=== PATIENT | male | born 1985 | race Caucasian/White ===

== ENCOUNTER → 2017-01-28 | Outpatient (CLI) | payer BC ==
--- NOTE | 2017-01-28 16:46 | DIAGNOSTIC IMAGING REPORT ---
R HAND MIN 3 VIEWS CLINICAL HISTORY: RIGHT HAND PAIN pain COMPARISON: 01/07/2017 DISCUSSION: Oblique/spiral fracture fifth metatarsal unchanged from the prior study. Possible early callus formation. Alignment is similar. No evidence of dislocation. All remaining osseous structures are unremarkable. Moderate soft tissue edema IMPRESSION: Minimal interval healing of a spiral fracture fifth metacarpal compared to the prior exam. Alignment is similar. The above report was generated using voice recognition software. It may contain grammatical, syntax or spelling errors. Electronically signed by: Ten Sharma M.D. 01/28/2017 4:44 PM Dictated Date/Time: 01/28/2017 4:43 PM
== END | disposition home or self-care (01) ==
LOC: C.RDSM 15:29
PROVIDERS: ATTEND Physician Assistant
DX: S62.396A Other fracture of fifth metacarpal bone, right hand, initial encounter for closed fracture (principal); X58.XXXA Exposure to other specified factors, initial encounter

== ENCOUNTER → 2017-03-10 | Outpatient (CLI) | payer OTHER ==
[2017-03-10 10:51] LABS: HEMATOCRIT 41.3 % (42-52); MEAN CELL VOLUME 92.4 fL (80-100); MEAN CORPUSCULAR HEMOGLOBIN 31.3 pg (25-34); MEAN CORPUSCULAR HGB CONC 33.9 g/dl (32-36); MEAN PLATELET VOLUME 10.3 fL (7.4-10.4); PLATELET COUNT 284 K/uL (130-400); RED CELL DISTRIBUTION WIDTH CV 12.8 % (11.5-14.5); WHITE BLOOD COUNT 4.82 K/uL (4.8-10.8)
[2017-03-10 11:13] LABS: BLOOD UREA NITROGEN 19 mg/dl (7-18); CALCIUM 9.1 mg/dl (8.5-10.1); CARBON DIOXIDE 30 mmol/L (21-32); GLUCOSE 96 mg/dl (70-99); POTASSIUM 3.6 mmol/L (3.5-5.1); SODIUM 136 mmol/L (136-145)
== END | disposition home or self-care (01) ==
LOC: C.LAB1850 09:15
PROVIDERS: ATTEND Physician Assistant Medical
DX: N30.10 Interstitial cystitis (chronic) without hematuria (principal)

== ENCOUNTER 2017-05-18 17:40 | Emergency (ER) | payer OTHER ==
[~2017-05-18] VITALS: Ht 190.5 cm; Wt 86.6 kg
[2017-05-18 17:42] VITALS: TEMP 36.4; Ht 190.5 cm; Wt 86.6 kg
[2017-05-18] MEDS ORDERED: NRN400 PO (17:54)
[2017-05-18] MEDS ORDERED: CYM20 PO (17:54)
--- NOTE | 2017-05-18 18:59 | DIAGNOSTIC IMAGING REPORT ---
L SHOULDER MIN 2 VIEWS ROUTINE HISTORY: 31 years-old Male L shoulder injury; play scoccer acute left shoulder pain status post trauma COMPARISON: None available TECHNIQUE: 3 views of the left shoulder FINDINGS: There is an acute fracture involving the distal clavicle extending just a few millimeters from the distal articular cortex width proximal fracture fragment elevated superiorly 3 mm. No significant angulation. Mild associated soft tissue swelling. The AC joint appears intact. Glenohumeral joint appears intact and unremarkable. Imaged lung schroeder appear clear. IMPRESSION: Acute minimally displaced fracture of the distal clavicle. The above report was generated using voice recognition software. It may contain grammatical, syntax or spelling errors. Electronically signed by: Eugene Apodaca M.D. 05/18/2017 6:57 PM Dictated Date/Time: 05/18/2017 6:55 PM
[2017-05-18 19:17] VITALS: BP 134/93; PULSE 84; O2SAT 96
--- NOTE | 2017-05-19 14:56 | EMERGENCY ROOM VISIT NOTE ---
ED Visit Note First contact with patient: 17:50 Chief Complaint: I hurt my left osmarbone. History of Present Illness: Mr. Singleton is a 31-year-old male who ambulates into the ED accompanied by his and child complaining of left clavicular pain. Patient reports approximately 1 hour ago he was playing soccer and was tackled from behind. He fell onto his left shoulder. He reports immediately after the fall he struck the ground and immediately started having distal left clavicle pain. Currently he describes his pain as a burning and achy sensation. He rates his discomfort 5/10. The pain is nonradiating. The pain worsens with palpation and abduction and abduction of the shoulder. He has not identified any alleviating factors related to the pain. He reports she has not taken any medications for pain prior to arrival at the hospital. He denies any associated symptoms related to his pain and he reports at the time of the fall he did not strike his head or have a loss of consciousness, since the fall he has had no signs of head injury, neck pain, previous shoulder injuries/surgeries, chest pain, shortness of breath, humerus pain, elbow pain, forearm pain, left upper extremity weakness/numbness/tingling. Review of Systems: As noted above in history of present illness. 5 body systems were reviewed and found to be negative as noted above. Past Medical History: Painful bladder syndrome. Current Medications: Gabapentin, duloxetine. Allergies to Medications: Vancomycin, penicillin. Social History: Patient is currently employed; he feels safe in his home environment; he denies tobacco use and admits to alcohol use. Physical Examination: Vital Signs: Date Time Temp Pulse Resp B/P (MAP) Pulse Ox O2 Delivery O2 Flow Rate FiO2 05/18/17 19:17 84 18 134/93 96 05/18/17 17:42 36.4 94 18 131/85 96 Room Air GENERAL: 31-year-old male in mild distress due to pain, nontoxic-appearing, afebrile and hemodynamically stable. NEUROLOGICAL: Awake, alert and oriented to person, place and time. Answering questions appropriately and following commands. Normal gait. Good hand eye coordination. SKIN: Warm, dry and pink. Left Shoulder: Over the superior aspect of the head is a superficial abrasion without bleeding. HEENT: Atraumatic and normocephalic. BACK: No tenderness over the bony cervical and thoracic spine. LEFT UPPER EXTREMITY: No gross bony deformity. No tenderness over the proximal clavicle but tenderness and swelling over the distal clavicle. Does appear the clavicle is slightly elevated above the acromion process at the AC joint. No tenderness over the scapula. No tenderness over the humeral head. Slight decreased range of motion of the shoulder predominantly in extension and abduction due to shoulder pain. No palpable tenderness throughout the rest of the humerus, elbow, forearm or wrist. With the shoulder stabilized patient has full range of motion in flexion and extension of the elbow, pronation and supination of forearm and flexion, extension and radial ulnar deviation of the wrist. Throughout the entire extremity the skin was warm and pink and capillary refill is brisk. He is able to distinguish light sensations. ED Course: Patient is assessed as noted above. Patient's medication list was reviewed. Patient was offered pain medication and refused. Left Shoulder X-Rays: Were read by myself and the radiologist showing an acute minimally distracted fracture of the distal left clavicle. Patient was placed in a sling. Patient was educated about today's findings and instructed on his treatment plan ; he verbalizes understanding and agreement with this plan. Clinical Impression: Left distal clavicle fracture. Disposition: Patient discharged home in stable condition accompanied by family member; prior to departure he was reassessed and subjectively reported he was feeling better and rated his discomfort 4/10. Plan: Comfort measures including sling use, rest, ice and alternating ibuprofen and Tylenol were discussed with the patient. Patient was encouraged to follow-up with orthopedics for definitive care and treatment. Patient was encouraged return the ED for worsening pain, worsening swelling, extremity weakness/numbness/tingling or any new/concerning symptoms.
== END 2017-05-18 19:18 | disposition home or self-care (01) ==
LOC: C.EDB 17:41 → C.EDD 19:18
DX: S42.002A Fracture of unspecified part of left clavicle, initial encounter for closed fracture (principal); S00.01XA Abrasion of scalp, initial encounter; Y93.66 Activity, soccer; W03.XXXA Other fall on same level due to collision with another person, initial encounter; Z79.899 Other long term (current) drug therapy; Z88.1 Allergy status to other antibiotic agents; Z88.0 Allergy status to penicillin

== ENCOUNTER → 2017-06-04 | Outpatient (CLI) | payer OTHER ==
[~2017-06-04] MED LIST: CYM20 PO; NRN400 PO
== END | disposition home or self-care (01) ==
LOC: C.RDSM 13:25
PROVIDERS: ATTEND Orthopaedic Surgery Sports Medicine
DX: S42.009A Fracture of unspecified part of unspecified clavicle, initial encounter for closed fracture (principal); X58.XXXA Exposure to other specified factors, initial encounter

== ENCOUNTER → 2017-07-02 | Outpatient (CLI) | payer OTHER | END | disposition home or self-care (01) | LOC: C.RDSM 13:40 | PROVIDERS: ATTEND Orthopaedic Surgery Sports Medicine | DX: S42.009A Fracture of unspecified part of unspecified clavicle, initial encounter for closed fracture (principal); X58.XXXA Exposure to other specified factors, initial encounter ==